=== PATIENT | female | born 1985 ===

== ENCOUNTER 2017-04-25 08:15 | Inpatient (IN) | payer MEDICAID, SELFPAY ==
[2017-04-25 07:35] VITALS: BMI 29.0
[2017-04-25] MEDS: Lactated Ringer's 1,000 ML IV SCH ×5 (08:00→19:53)
[~2017-04-25 08:15] MED LIST: ceFAZolin IV 2 gm in Dextrose 2 GM/50 ML BAG IVPB ONE
[2017-04-25] MEDS ORDERED: Oxytocin 30 UNITS in Sodium Chloride 0.9% 500 ML IV ONE (08:30)
[2017-04-25 08:31] LABS: HEMATOCRIT 41.4 % (34.0-47.0); MEAN CELL VOLUME 90.7 fl (81.0-99.0); MEAN CORPUSCULAR HEMOGLOBIN 31.1 pg (27.0-31.0); MEAN CORPUSCULAR HGB CONC 34.3 g/dL (33.0-37.0); RED CELL DISTRIBUTION WIDTH 12.8 % (11.5-14.5); WHITE BLOOD COUNT 4.8 K/uL (4.8-10.8)
[2017-04-25] MEDS ORDERED: Morphine 1 mg/ml preservative-free Inj(Duramorph) ONE (10:56)
[2017-04-25] MEDS ORDERED: EPINEPHrine 1 mg/ml (1:1000) Inj ONE (11:08)
[2017-04-25] MEDS ORDERED: ePHEDrine 50 mg/ml Inj ONE (11:09)
[2017-04-25] MEDS ORDERED: Naloxone 0.4 mg/ml Inj (Adult) IVP PRN (12:45)
[2017-04-25] MEDS ORDERED: DiphenhydrAMINE 50 mg/ml Inj IVP PRN (12:45)
[2017-04-25] MEDS ORDERED: Oxycodone/Acetaminophen 5/325 mg Tab PO PRN (15:19)
[2017-04-25] MEDS: Simethicone 80 mg Chewtab PO SCH ×2 (16:04→23:09)
[2017-04-25] MEDS: Oxycodone/Acetaminophen 5/325 mg Tab PO PRN (23:09)
--- NOTE | 2017-04-25 23:36 | OP ---
PROCEDURE DATE: 04/25/2017 PREOPERATIVE DIAGNOSIS: Term with previous section, desires repeat. POSTOPERATIVE DIAGNOSIS: Term with previous section, desires repeat, delivered. PROCEDURE: Repeat low transverse section. SURGEON: Brittany Galloway MD TIMBER HARVESTER OPERATOR: Terence Goetz MD ESTIMATED BLOOD LOSS: 800 mL. URINE OUTPUT: 200 mL, clear at the end of procedure. INTRAVENOUS FLUID: 800 mL lactated Ringer. FINDINGS: A live female with Apgars of 9 and 9, weight 3390 g, delivered in vertex presentation. Amniotic fluid clear. Grossly normal tubes, ovaries and uterus. DESCRIPTION OF PROCEDURE: The patient was taken to the operating room and given spinal anesthesia without difficulty. She was then prepped and draped in the normal sterile fashion in the dorsal lithotomy position with a leftward tilt. A Pfannenstiel skin incision was made with the scalpel after removal of the keloid scar. This was carried through to the underlying fascia with the Bovie. The fascia was incised in the midline. The incision was extended laterally using the Bovie. The inferior aspect of the fascial incision was then grasped with Sparkle clamps, elevated, and the underlying rectus muscles were dissected off sharply with the Bovie, then bluntly. Attention was then turned to the superior aspect of the fascial incision which in a similar fashion was grasped with Sparkle clamps, elevated and the underlying rectus muscles were dissected off sharply with the Bovie, then bluntly. The rectus muscles were meticulously in the midline using the scalpel and the peritoneum was identified and entered bluntly. This incision was then extended laterally, superiorly and inferiorly paying close attention to the bladder. The bladder blade was then inserted and the lower uterine segment was then identified, entered in a transverse fashion with the scalpel. This incision was then extended laterally using the bandage scissors and the was delivered atraumatically. The nose and mouth were suctioned on the abdomen. The cord was doubly clamped and cut, and the was handed off to the awaiting bridge construction inspector. Cord blood was then taken. The placenta was extracted spontaneously and intact. The uterus was exteriorized and cleared off all clots and debris. The uterine incision was then repaired with 1 Vicryl in a running locked fashion and two further [id number] sutures were then placed and good hemostasis was noted. Copious irrigation was performed. Inspection of the remainder of the uterus, tubes and ovaries revealed the findings as above. The uterus was returned to the abdomen. The gutters were cleared of all clots. The area of the uterine incision again revealed good hemostasis. The peritoneum and muscle were then reapproximated using 2-0 Vicryl in the running fashion. The fascia was reapproximated using 0 Vicryl in a running fashion bilaterally to the midline and good hemostasis was noted. The Bovie was used to obtain hemostasis on the subcutaneous fat and this layer was closed with 4 interrupted sutures using a 3-0 plain suture. The incision was closed with bradley and covered with a sterile dressing. The patient tolerated the procedure well. Sponge, lap, and needle counts were correct x4. Ancef 2 g were given preoperatively. The patient was taken to the recovery room in stable condition. There was no injury to the bladder, bowel, ureter or baby. Due to the nature of this case, an drafter assistant was requested. My drafter assistant, Dr. Terence Goetz was present from the initial incision to the patient's transfer to the recovery room. He assisted with entry into the abdominal cavity, delivery of the baby, repair of the uterine incision and closure of all layers of the abdominal wall. He provided good exposure to ensure good hemostasis. This procedure could not have been performed without his assistance. Brittany Galloway MD
[2017-04-26] MEDS: Lactated Ringer's 1,000 ML IV SCH ×2 (03:15→16:15)
[2017-04-26] MEDS: Oxycodone/Acetaminophen 5/325 mg Tab PO PRN ×4 (03:15→22:06)
[2017-04-26] MEDS: Simethicone 80 mg Chewtab PO SCH ×4 (04:44→22:06)
[2017-04-26 05:41] LABS: BASO % 0.4 % (0.0-2.0); EOS % 0.3 % (0.0-4.0); HEMATOCRIT 35.5 % (34.0-47.0); LYMPH # 1.2 K/uL (1.0-4.3); LYMPH % 17.5 % (20.0-40.0); MEAN CORPUSCULAR HEMOGLOBIN 31.1 pg (27.0-31.0); MEAN CORPUSCULAR HGB CONC 33.8 g/dL (33.0-37.0); MEAN PLATELET VOLUME 8.9 fl (7.2-11.7); MONO # 0.5 K/uL (0.0-0.8); MONO % 7.9 % (0.0-10.0); NEUT # 4.9 K/uL (1.8-7.0); NEUT % 73.9 % (50.0-75.0); NRBC % 0.1 % (0.0-0.0); RED CELL DISTRIBUTION WIDTH 12.6 % (11.5-14.5); WHITE BLOOD COUNT 6.6 K/uL (4.8-10.8)
[2017-04-26 08:42] VITALS: RESP 20
--- NOTE | 2017-04-26 11:56 | OBPPN ---
Datetime: 04/26/2017 06:44 PP Pain Prov: Within normal limits PP Nausea Prov: Denies PP Flatus Prov: Yes PP BM Prov: No PP Heart Prov: Normal PP Lungs Prov: Normal PP Abdomen/Uterus Prov: Normal PP Lochia Prov: Normal PP Extremities Prov: Normal PP C/S Incision Prov: Normal PP Impression Prov: Normal progression PP Plan Prov: Continue present management PP Progress Note Prov: 32 y/o F now on POD 1. Pt had a repeat C/S on 04/24/17 with no compli cations. Pt reports feeling well, but lower abdomen pain is present, 6/10 intensity and improves with provided medication. HR has been elevated since s/p C/S, but improves with pain medication intake. P t still has bravo catheter in place. Pt is and supplementing with formula. Pain is well controlled with medications. Pt afebrile and tolerating PO. Lochia is improving and now less than me nses. Pt passing gasses but NO bowel movement. Pt denies headache, CP, SOB, N/V, urinary complaints o r rash. O: HR 91 at 04:00, 96 at 00:00 of today; 108 at 20:00 on 04/25. PE Gen: Pt is resting comfortably on bed, not in acute distress. HEENT: oral mucosa moist. CV: S1 and S2 present, rhythm is regular. Lungs: CTA B/L. Abdomen: Soft, mildly tender, non-distended. Fundus of uterus firm and bellow umbilicus. Incision is clean, dry and intact with no erythema or suppuration. EXT: no peripheral edema, yu's sign negative. NEURO/PSYCH: no grossly focal deficit, preserved affect and mood. A/P: 32 y/o F on POD 1, recovering well. -Continue medical management. -Monitor vital signs, HR. -Anticipated discharge tomorrow. -Pt encouraged for ambulation and breast feeding. Case discussed with Dr Hurtado, OB station captain. Kristen PGY-1 The patient was seen with the resident and I agree with the notes IP PP Procedures: None Vital Signs Provider PP: Reviewed
[2017-04-26] MEDS ORDERED: Oxycodone/Acetaminophen 5/325 mg Tab PO PRN (16:27)
[2017-04-27] MEDS: Simethicone 80 mg Chewtab PO SCH ×4 (04:29→22:33)
--- NOTE | 2017-04-27 07:56 | NBPN ---
Datetime: 04/27/2017 07:54 Nsy Prov Gen Appearance: Within Normal Limits Nsy Prov Skin: Within Normal Limits Nsy Prov Neuro: Normal Tone; Sukhwinder; Grasp; Root; Suck Nsy Prov Musculoskeletal: Within Normal Limits; Full Range of Motion; Spontaneous Movement All Extre mities; Intact Clavicles; Clavicles without Crepitus; Gluteal Folds Symmetrical; Spine Within Normal Limits; No Sacral Dimple/Cyst Nsy Prov Head: Normal Fontanelles; Normocephalic; Sutures WNL Nsy Prov EENT: Mouth Within Normal Limits; Ears Within Normal Limits; Eyes Within Normal Limits; Eye s Red Reflex Bilaterally; Nose Within Normal Limits; Face Within Normal Limits Nsy Prov Cardiovascular: Within Normal Limits; Normal Pulses Nsy Prov Respiratory: Within Normal Limits Nsy Prov GI: Within Normal Limits; Soft; Normal Liver; Non Palpable Spleen; Patent Anus Nsy Prov Umbilicus: Within Normal Limits; Three Vessel Cord Nsy Prov : Normal Female Genitalia Nsy Prov Impression: Healthy Term Haven; Vital Signs Appropriate; Bonding Appropriately; Voiding a nd Stooling Nsy Prov Plan: Continue Care Nsy Prov Impression/Plan Details: Well baby girl.
--- NOTE | 2017-04-27 08:49 | OBPPN ---
Datetime: 04/27/2017 06:22 PP Pain Prov: Within normal limits PP Nausea Prov: Denies PP Flatus Prov: Yes PP BM Prov: No PP Heart Prov: Normal PP Lungs Prov: Normal PP Abdomen/Uterus Prov: Normal PP Lochia Prov: Normal PP CVA Tenderness Prov: Normal PP Extremities Prov: Normal PP C/S Incision Prov: Normal PP Impression Prov: Normal progression PP Plan Prov: Continue present management PP Progress Note Prov: 32 y/o F now on POD 2. Pt had a repeat C/S on 04/24/17 with no compli cations. Pt reports feeling well with NO events overnight. Pt presented tachycardia after C/S, HR rem ained WNL overnight. Pt urinating and ambulating without difficulties. Pt is and supple menting with formula. Pain is mild, intermittent and well controlled with medications. Pt afebrile an d tolerating PO. Lochia now less than menses. Pt passing gasses but NO bowel movement yet. Pt denies headache, CP, SOB, N/V, urinary complaints or rash. PE Gen: Pt is resting comfortably on bed, not in acute distress. HEENT: oral mucosa moist. CV: S1 and S2 present, rhythm is regular. Lungs: CTA B/L. Abdomen: Soft, mildly tender, non-distended. Fundus of uterus firm and below umbilicus. Incision i s clean, dry and intact with no erythema or suppuration. EXT: no peripheral edema, yu's sign negative. NEURO/PSYCH: no grossly focal deficit, preserved affect and mood. A/P: 32 y/o F on POD 2, recovering well. -Continue medical management. -Monitor vital signs, HR. -Anticipated discharge tomorrow. -Pt encouraged for ambulation and breast feeding. Case discussed with OB salon/spa manager. Kristen PGY-1 OB Hospitalist on-call. Pt seen on rounds this AM, Agree with note. AMMON ALEXIS PP Procedures: None Vital Signs Provider PP: Reviewed
[2017-04-27] MEDS ORDERED: Prenatal Multivit/Folic Acid/Iron Tab PO SCH (09:00)
[2017-04-28] MEDS: Simethicone 80 mg Chewtab PO SCH ×2 (05:31→09:19)
[2017-04-28 18:38] VITALS: BP 115/74; PULSE 94; TEMP 98.6; O2SAT 99
== END 2017-04-28 14:30 | disposition home or self-care (01) | DRG 766 ==
LOC: H.L&D 08:15 → H.OB/GYN 16:43
PROVIDERS: ADMIT Obstetrics & Gynecology; ATTEND Obstetrics & Gynecology
PROC: 10D00Z1 Extraction of Products of Conception, Low, Open Approach (ICD-10-PCS; principal; 2017-04-25)
PROC: 4A1HXCZ Monitoring of Products of Conception, Cardiac Rate, External Approach (ICD-10-PCS; 2017-04-25)
DX: O34.211 Maternal care for low transverse scar from previous cesarean delivery (principal); N85.8 Other specified noninflammatory disorders of uterus; Z37.0 Single live birth; Z3A.39 39 weeks gestation of pregnancy